=== PATIENT | female | born 1965 | race Caucasian/White ===

== ENCOUNTER 2019-03-11 10:40 | Emergency (ER) | payer BC, OTHER ==
[~2019-03-11] VITALS: Ht 170.2 cm; Wt 81.2 kg
[2019-03-11 10:46] VITALS: BP 133/61
--- NOTE | 2019-03-11 10:57 | NUR ---
Patient ambulated to bed 9. RN evaluating patient at bedside.
--- NOTE | 2019-03-11 11:00 | NUR ---
science technician at bedside.
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
--- NOTE | 2019-03-11 11:10 | NUR ---
Dr. Nuno is evaluating the patient at bedside.
[2019-03-11] MEDS ORDERED: IBUPROFEN 800 MG TAB PO ONE (11:15)
--- NOTE | 2019-03-11 11:30 | NUR ---
POSSITIVE CMS DISTAL TO THE SPLINT APPLIED ON RIGHT WRIST.
[2019-03-11 11:37] VITALS: BP 133/61
== END 2019-03-11 11:36 | disposition home or self-care (01) ==
LOC: MED 10:40
DX: S63.501A Unspecified sprain of right wrist, initial encounter (principal); I10 Essential (primary) hypertension; E78.5 Hyperlipidemia, unspecified; F17.210 Nicotine dependence, cigarettes, uncomplicated; W51.XXXA Accidental striking against or bumped into by another person, initial encounter; Y93.89 Activity, other specified; Y92.89 Other specified places as the place of occurrence of the external cause; Y99.8 Other external cause status; Z88.0 Allergy status to penicillin; Z90.49 Acquired absence of other specified parts of digestive tract
CPT/HCPCS: 73110; 99283